=== PATIENT | female | born 1980 ===

== ENCOUNTER 2021-05-25 20:44 | Emergency (ER) | payer OTHER ==
[~2021-05-25] VITALS: Ht 162.6 cm; Wt 87.0 kg
--- NOTE | 2021-05-25 21:00 | NUR ---
INITIAL PT CONTACT. PT PRESENTS TO ED C/O RIGHT FLANK PAIN X5 DAYS. PT STATES SHE SAW PRIMARY CARE YESTERDAY AND WAS TOLD SHE MOST LKEY HAS A KIDNEY STONE, WAS TOLD TO COME TO ED IF PAIN BECAME MUCH WORSE, PT STATES TODAY ITS WORSE. STATES INTERMITTENT NAUSEA. PT AMBULATORY WITH STEADY GAIT FROM ROOM TO BATHROOM, URINE SAMPLE PROVIDED. PT SITTING UPRIGHT ON GURNEY, NADN, VSS. PT DENIES ANY NEEDS AT THIS TIME. CONTINUOUS MONITORING IN PLACE. CALL LIGHT AND PERSONAL BELONGINGS WITHIN REACH. AWAITING ERP.
[2021-05-25] MEDS ORDERED: ONDANSETRON 2MG/ML, 2ML IVPush ONE (21:30)
[2021-05-25 21:33] LABS: HCG UR SG 1.017 (1.003-1.030); MICROSCOPIC NOT IND
[2021-05-25] MEDS ORDERED: MORPHINE SULFATE 4 MG/ML, 1ML ONE ×2 (21:35→22:40)
[2021-05-25] MEDS ORDERED: ONDANSETRON 2MG/ML, 2ML ONE (21:35)
[2021-05-25] MEDS: MORPHINE SULFATE 4 MG/ML, 1ML IVPush PRN ×2 (21:36→22:43)
[2021-05-25 21:45] LABS: BASOPHILS % (AUTO) 1 % (0-1); EOSINOPHILS % (AUTO) 2 % (1-7); LYMPHOCYTES % (AUTO) 36 % (22-44); MEAN CORPUSCULAR HGB CONC 33.8 g/dL (32.4-35.8); MEAN PLATELET VOLUME 8.2 fL (7.4-10.4); MONOCYTES % (AUTO) 9 % (2-9); NEUTROPHILS % (AUTO) 53 % (42-75); PLATELET COUNT 362 x10^3/uL (130-400); RED BLOOD COUNT 4.87 x10^6/uL (3.82-5.3); RED CELL DISTRIBUTION WIDTH 13.9 % (9.6-15.2)
[2021-05-25 21:53] LABS: ALANINE AMINOTRANSFERASE 41 U/L (12-78); ALBUMIN 2.8 g/dL (3.4-5.0); ANION GAP 8 mmol/L (5-15); CALCIUM 8.8 mg/dL (8.5-10.1); CHLORIDE 108 mmol/L (98-107); CREATININE 0.64 mg/dL (0.55-1.02)
[2021-05-25 21:56] LABS: ALKALINE PHOSPHATASE 121 U/L (45-117); BILIRUBIN,TOTAL 0.3 mg/dL (0.2-1.0)
--- NOTE | 2021-05-25 22:30 | NUR ---
PT REPORTS INCREASED PAIN AND REQUESTING ADDITIONAL PAIN MEDICATION. PT MEDICATED PER EMAR. NO ADDITIONAL NEEDS AT THIS TIME. CALL LIGHT AND PERSONAL BELONGINGS WITHIN REACH. AWAITING ULTRASOUND
[2021-05-26 01:45] VITALS: BP 137/72
--- NOTE | 2021-05-26 01:45 | NUR ---
Patient given discharge instructions and they have confirmed that they understand the instructions. Patient ambulatory with steady gait. NAD, all questions answered appropriately, denies additional needs at this time. No personal belongings left in room after discharge.
== END 2021-05-26 01:50 | disposition home or self-care (01) ==
LOC: ED 21:44
DX: N83.291 Other ovarian cyst, right side (principal); R10.31 Right lower quadrant pain; R11.2 Nausea with vomiting, unspecified
CPT/HCPCS: 36415; 74176; 76830; 80053; 81003; 81025; 83690; 85025; 96374; 96375; 96376; 99285; J2270; J2405